=== PATIENT | female | born 1975 | race Hispanic/Latino ===

== ENCOUNTER 2017-01-11 17:57 | Emergency (ER) | payer MEDICAID ==
[2017-01-11 18:16] VITALS: BP 111/60; PULSE 60; RESP 18; TEMP 98.2; O2SAT 100
--- NOTE | 2017-01-11 18:44 | C.PDOC ---
History Of Present Illness 41 yr old female presents to the ER with complaints of left shoulder pain today. Patient states she was moving furniture around the house today. Reports taking Advil with mild relief. Denies chest pain, SOB, neck pain, back pain, weakness or numbness. Time Seen by Provider: 01/11/17 18:39 Chief Complaint (Nursing): Upper Extremity Problem/Injury History Per: Patient History/Exam Limitations: no limitations Onset/Duration Of Symptoms: Sudden Onset (Since morning) Past Medical History Reviewed: Historical Data, Nursing Documentation, Vital Signs Vital Signs: Last Vital Signs Temp 98.2 F 01/11/17 18:12 Pulse 60 01/11/17 18:12 Resp 18 01/11/17 18:12 BP 111/60 01/11/17 18:12 Pulse Ox 100 01/11/17 20:09 - Medical History PMH: Asthma Family History: States: No Known Family Hx - Social History Hx Tobacco Use: No Hx Alcohol Use: Yes Hx Substance Use: No - Immunization History Hx Tetanus Toxoid Vaccination: No Hx Influenza Vaccination: No Hx Pneumococcal Vaccination: No Review Of Systems Except As Marked, All Systems Reviewed And Found Negative. Cardiovascular: Negative for: Chest Pain Respiratory: Negative for: Shortness of Breath Musculoskeletal: Positive for: Shoulder Pain (Left shoulder). Negative for: Neck Pain, Back Pain Neurological: Negative for: Weakness, Numbness Physical Exam - Physical Exam Appears: Non-toxic, No Acute Distress Skin: Warm, Dry, No Rash Head: Atraumatic, Normacephalic Eye(s): bilateral: Normal Inspection Oral Mucosa: Moist Neck: Normal ROM Chest: Symmetrical, No Tenderness Cardiovascular: Rhythm Regular, No Murmur Respiratory: Normal Breath Sounds, No Rales, No Rhonchi, No Stridor, No Wheezing Extremity: Capillary Refill (<2 sec), Other (Left Shoulder: Mild tenderness to the lateral and anterior aspect. Pain with abduction. No deformity. No swelling. ) Neurological/Psych: Oriented x3, Normal Speech Gait: Steady ED Course And Treatment O2 Sat by Pulse Oximetry: 100 (RA) Pulse Ox Interpretation: Normal Medical Decision Making Medical Decision Making: Impression: arm injury likely muscle strain. based on history and exam xray is not indicated Plan: * Flexeril PO Progress: Arm sling applied. On re-examination, patient is resting comfortably in no acute distress. Patient reports improvement of symptoms. Patient feels comfortable going home and will be discharged. Patient given follow up instructions. Disposition Counseled Patient/Family Regarding: Diagnosis, Need For Followup, Rx Given - Disposition Referrals: Luis Fernando Parker MD [Staff Provider] - Disposition: HOME/ ROUTINE Disposition Time: 19:07 Condition: STABLE Additional Instructions: Please apply ice to area 15 minutes three times a day. Take Motrin as needed for pain every 6 hours, with food to not upset stomach. Follow up with orthopedic if pain persists over one week. Prescriptions: Cyclobenzaprine [Cyclobenzaprine HCl] 10 mg PO TID #21 tab Ibuprofen [Motrin] 600 mg PO Q8 #30 tab Instructions: Shoulder Sprain (ED) Forms: [employer] (Malian) - POA Present On Arrival: None - Clinical Impression Clinical Impression: Sprain of shoulder, left - PA / BOTTLE SELECTOR / Resident Statement MD/DO has reviewed & agrees with the documentation as recorded. - Scribe Statement The provider has reviewed the documentation as recorded by the Scribjulee Daley All medical record entries made by the Scribe were at my direction and personally dictated by me. I have reviewed the chart and agree that the record accurately reflects my personal performance of the history, physical exam, medical decision making, and the department course for this patient. I have also personally directed, reviewed, and agree with the discharge instructions and disposition.
== END 2017-01-11 19:18 | disposition home or self-care (01) ==
LOC: C.ER 17:57
DX: S43.402A Unspecified sprain of left shoulder joint, initial encounter (principal); X50.9XXA Other and unspecified overexertion or strenuous movements or postures, initial encounter; Y92.009 Unspecified place in unspecified non-institutional (private) residence as the place of occurrence of the external cause

== ENCOUNTER 2017-05-13 11:32 | Emergency (ER) | payer MEDICAID ==
[2017-05-13 11:57] VITALS: TEMP 98.3
[2017-05-13] MEDS ORDERED: Naproxen 550 mg Tab PO STA (12:31)
[2017-05-13] MEDS ORDERED: Naproxen 550 mg Tab PO ONE (12:35)
--- NOTE | 2017-05-13 12:59 | RAD ---
PROCEDURE: Left Knee Radiographs. HISTORY: Posttraumatic pain COMPARISON: None. FINDINGS: BONES: Normal. No fracture. JOINTS: Normal. No osteoarthritis. JOINT EFFUSION: None. OTHER FINDINGS: None. IMPRESSION: Normal radiographs of the left knee.
--- NOTE | 2017-05-13 12:59 | RAD ---
PROCEDURE: Left Ankle Radiographs. HISTORY: trauma COMPARISON: None FINDINGS: BONES: Normal. No fracture. JOINTS: Normal. No osteoarthritis. Ankle mortise maintained. Talar dome intact SOFT TISSUES: Normal. OTHER FINDINGS: None. IMPRESSION: Normal left ankle radiographs.
--- NOTE | 2017-05-13 13:06 | C.PDOC ---
History Of Present Illness 41-year-old female, presents to the emergency department with complaints of left leg pain s/p slip and fall yesterday on stairs. Patient is complaining of knee and ankle pain that worsens with ambulation. She has a Hx of torn ligaments in knee. Denies numbness/weakness. No head injury, LOC, or n/v. Time Seen by Provider: 05/13/17 12:13 Chief Complaint (Nursing): Hip Pain History Per: Patient History/Exam Limitations: no limitations Current Symptoms Are (Timing): Still Present Past Medical History Reviewed: Historical Data, Nursing Documentation, Vital Signs Vital Signs: Last Vital Signs Temp 98.3 F 05/13/17 11:39 Pulse 78 05/13/17 13:15 Resp 16 05/13/17 13:15 BP 120/85 05/13/17 13:15 Pulse Ox 99 05/13/17 13:31 - Medical History PMH: Asthma Family History: States: No Known Family Hx - Social History Hx Tobacco Use: No Hx Alcohol Use: Yes Hx Substance Use: No - Immunization History Hx Tetanus Toxoid Vaccination: No Hx Influenza Vaccination: No Hx Pneumococcal Vaccination: No Review Of Systems Constitutional: Negative for: Fever Musculoskeletal: Positive for: Leg Pain (left) Neurological: Negative for: Weakness, Numbness Physical Exam - Physical Exam Appears: Non-toxic, No Acute Distress Skin: Warm, Dry, No Rash Head: Atraumatic, Normacephalic Eye(s): bilateral: Normal Inspection, EOMI Nose: Normal Oral Mucosa: Moist Lips: Normal Appearing Neck: Normal ROM Chest: Symmetrical Respiratory: No Accessory Muscle Use Extremity: Normal ROM, No Calf Tenderness, Capillary Refill (<2 sec), No Swelling, Other (Diffuse tenderness to knee and ankle.) Pulses: Left Dorsalis Pedis: Normal, Right Dorsalis Pedis: Normal Neurological/Psych: Oriented x3, Normal Speech, Normal Motor, Normal Sensation Gait: Steady ED Course And Treatment O2 Sat by Pulse Oximetry: 99 (on RA) Pulse Ox Interpretation: Normal - Other Rad ankle xr X-Ray: Viewed By Me, Read By Radiologist Interpretation: PROCEDURE: Left Ankle Radiographs. HISTORY: trauma. COMPARISON: None. FINDINGS: BONES: Normal. No fracture. JOINTS: Normal. No osteoarthritis. Ankle mortise maintained. Talar dome intact. SOFT TISSUES: Normal. OTHER FINDINGS: None. IMPRESSION: Normal left ankle radiographs. knee xr X-Ray: Viewed By Me, Read By Radiologist Interpretation: PROCEDURE: Left Knee Radiographs. HISTORY: Posttraumatic pain. COMPARISON: None. FINDINGS: BONES: Normal. No fracture. JOINTS: Normal. No osteoarthritis. JOINT EFFUSION: None. OTHER FINDINGS: None. IMPRESSION: Normal radiographs of the left knee. Progress Note: XR L Knee and ankle ordered and reviewed. Patient treated with PO Naproxen. anahi wrap applied to ankle and knee brace applied to knee by cashier payments received. Patient was instructed to follow up with physician/clinic in 1-2 days for further evaluation. Disposition - Disposition Disposition: HOME/ ROUTINE Disposition Time: 13:04 Condition: STABLE Additional Instructions: Follow up with your primary medical doctor or clinic in 2-5 days for further evaluation. Take medications as prescribed. Return to the emergency department at any time if symptoms persist or worsen. Prescriptions: Naproxen [Naprosyn] 1 tab PO BID PRN #20 tab PRN Reason: Pain Instructions: Contusion in Adults (ED) Forms: [employer] (Somali) - Clinical Impression Clinical Impression: Knee strain, Ankle sprain - Scribe Statement The provider has reviewed the documentation as recorded by the Scribe (Crys Parker) All medical record entries made by the Scribe were at my direction and personally dictated by me. I have reviewed the chart and agree that the record accurately reflects my personal performance of the history, physical exam, medical decision making, and the department course for this patient. I have also personally directed, reviewed, and agree with the discharge instructions and disposition.
[2017-05-13 13:16] VITALS: BP 120/85; PULSE 78; RESP 16
[2017-05-13 13:26] VITALS: O2SAT 99
== END 2017-05-13 13:14 | disposition home or self-care (01) ==
LOC: C.ER 11:32
DX: S86.912A Strain of unspecified muscle(s) and tendon(s) at lower leg level, left leg, initial encounter (principal); S93.402A Sprain of unspecified ligament of left ankle, initial encounter; W01.0XXA Fall on same level from slipping, tripping and stumbling without subsequent striking against object, initial encounter

== ENCOUNTER 2017-08-14 17:15 | Emergency (ER) | payer MEDICAID ==
[2017-08-14 17:21] VITALS: BP 112/73; PULSE 83; RESP 18; TEMP 97.9; O2SAT 97
--- NOTE | 2017-08-14 19:47 | C.PDOC ---
History Of Present Illness 41 year old female presents to the ED c/o left knee pain after falling yesterday. Patient reports she slipped on wet ground which caused her to twist her knee. Patient reports this happened before with her same knee. Patient denies LOC, headache, weakness, numbness. Time Seen by Provider: 08/14/17 18:53 Chief Complaint (Nursing): Lower Extremity Problem/Injury History Per: Patient History/Exam Limitations: no limitations Onset/Duration Of Symptoms: Days Current Symptoms Are (Timing): Gone Recent travel outside of the [place]: No Additional History Per: Patient - Knee Description Of Injury: Twisted Currently Unable To: Bend Or Move Past Medical History Reviewed: Historical Data, Nursing Documentation, Vital Signs Vital Signs: Last Vital Signs Temp 97.9 F 08/14/17 17:19 Pulse 83 08/14/17 17:19 Resp 18 08/14/17 17:19 BP 112/73 08/14/17 17:19 Pulse Ox 97 08/14/17 19:47 - Medical History PMH: Asthma Surgical History: No Surg Hx Family History: States: Unknown Family Hx - Social History Hx Tobacco Use: No Hx Alcohol Use: Yes Hx Substance Use: No - Immunization History Hx Tetanus Toxoid Vaccination: No Hx Influenza Vaccination: No Hx Pneumococcal Vaccination: No Review Of Systems Constitutional: Negative for: Fever, Chills Cardiovascular: Negative for: Chest Pain Respiratory: Negative for: Shortness of Breath Gastrointestinal: Negative for: Abdominal Pain Musculoskeletal: Positive for: Leg Pain Skin: Negative for: Rash Physical Exam - Physical Exam Appears: Non-toxic, No Acute Distress Skin: Normal Color, Warm, Dry Head: Atraumatic, Normacephalic Eye(s): bilateral: Normal Inspection Extremity: Normal ROM, Tenderness (mild left knee), Capillary Refill (< 2 seconds), No Swelling, Other (suprapatellar effusion ) Pulses: Left Dorsalis Pedis: Normal, Right Dorsalis Pedis: Normal Neurological/Psych: Oriented x3, Normal Motor, Normal Sensation Gait: Steady ED Course And Treatment O2 Sat by Pulse Oximetry: 97 (ON RA) Pulse Ox Interpretation: Normal - Other Rad Left Knee X-Ray X-Ray: Interpreted by Me, Viewed By Me Interpretation: No fracture or dislocation Medical Decision Making Medical Decision Making: Impression: left knee pain Plan: * Left Knee X-Ray * Motrin 600 mg PO Patient had a knee immobilizer placed on her left knee and was given information for her to follow up with ortho. Patient refused crutches Disposition - Disposition Referrals: Shahida Cartwright MD [Staff Provider] - Disposition: HOME/ ROUTINE Disposition Time: 19:45 Condition: STABLE Additional Instructions: Follow up with PMD and Orthopedist within 1-2 days. Return to ED if feel worse. Prescriptions: Ibuprofen [Motrin Tab] 600 mg PO Q8 #30 tab Instructions: Knee Immobilizer (DC), Knee Sprain (DC) Forms: [employer] (Syriac) - Clinical Impression Clinical Impression: Contusion of knee, left - PA / BONSAI TENDER / Resident Statement MD/DO has reviewed & agrees with the documentation as recorded. - Scribe Statement The provider has reviewed the documentation as recorded by the Scribe Angel Beltre All medical record entries made by the Scribe were at my direction and personally dictated by me. I have reviewed the chart and agree that the record accurately reflects my personal performance of the history, physical exam, medical decision making, and the department course for this patient. I have also personally directed, reviewed, and agree with the discharge instructions and disposition.
--- NOTE | 2017-08-15 08:04 | RAD ---
PROCEDURE: Left Knee Radiographs. HISTORY: Pain. COMPARISON: Left knee x-rays 05/13/2017 FINDINGS: BONES: No fracture identified. JOINTS: No dislocation seen. Bony articulations appear maintained. JOINT EFFUSION: None. OTHER FINDINGS: None. IMPRESSION: No fracture or dislocation identified.
== END 2017-08-14 20:11 | disposition home or self-care (01) ==
LOC: C.ER 17:15
DX: S80.02XA Contusion of left knee, initial encounter (principal); W01.0XXA Fall on same level from slipping, tripping and stumbling without subsequent striking against object, initial encounter; Y92.9 Unspecified place or not applicable

== ENCOUNTER 2018-05-29 15:06 | Emergency (ER) | payer MEDICAID ==
[2018-05-29 15:50] VITALS: RESP 20
[2018-05-29] MEDS ORDERED: Albuterol-Ipratrop 3 mg / 0.5 (3 ml) UD INH STA ×3 (16:00→17:39)
--- NOTE | 2018-05-29 16:12 | C.PDOC ---
History Of Present Illness 42 y/o female,w/PMhx of asthma, presents to the ER complaining of shortness of breath which has been present for the past 2 days. Patient states that she used inhaler without relief. Patient denies having fever, chills, cough, CP, tobacco use, and hx of intubations. Time Seen by Provider: 05/29/18 15:35 Chief Complaint (Nursing): Shortness Of Breath History Per: Patient History/Exam Limitations: no limitations Onset/Duration Of Symptoms: Days Current Symptoms Are (Timing): Still Present Severity: Moderate Past Medical History Reviewed: Historical Data, Nursing Documentation, Vital Signs Vital Signs: Last Vital Signs Temp 99.2 F 05/29/18 15:15 Pulse 94 H 05/29/18 15:37 Resp 20 05/29/18 15:45 BP 113/69 05/29/18 15:37 Pulse Ox 98 05/29/18 15:45 - Medical History PMH: Asthma Surgical History: No Surg Hx Family History: States: No Known Family Hx - Social History Hx Tobacco Use: No Hx Alcohol Use: No Hx Substance Use: No - Immunization History Hx Tetanus Toxoid Vaccination: No Hx Influenza Vaccination: No Hx Pneumococcal Vaccination: No Review Of Systems Except As Marked, All Systems Reviewed And Found Negative. Constitutional: Negative for: Fever, Chills Cardiovascular: Negative for: Chest Pain Respiratory: Positive for: Shortness of Breath. Negative for: Cough Gastrointestinal: Negative for: Nausea, Vomiting Physical Exam - Physical Exam Appears: Non-toxic, No Acute Distress Skin: Normal Color, Warm, Dry Head: Atraumatic, Normacephalic Eye(s): bilateral: Normal Inspection Nose: Normal Oral Mucosa: Moist Neck: Supple Chest: Symmetrical Cardiovascular: Rhythm Regular Respiratory: No Rales, No Rhonchi, Wheezing (expiratory wheezing) Gastrointestinal/Abdominal: Normal Exam, Soft, No Tenderness, No Guarding, No Rebound Neurological/Psych: Oriented x3, Normal Speech ED Course And Treatment O2 Sat by Pulse Oximetry: 98 (RA) Pulse Ox Interpretation: Normal Medical Decision Making Medical Decision Making: Assessment: Asthma Exacerbation Plan: --CXR --Albuterol --Prednisone PO patient states improvement. Will discharge home to follow up with pmd within 2 days Disposition - Disposition Referrals: Washington Gomez MD [Medical Doctor] - Disposition: HOME/ ROUTINE Disposition Time: 18:43 Condition: STABLE Additional Instructions: follow up with your doctor within 2 days call to make an appointment take medications as prescribed return to ER if symptoms worsens or progress Prescriptions: Albuterol HFA [Ventolin HFA 90 mcg/actuation (8 g)] 2 puff IH [id number] #1 puff predniSONE [predniSONE Tab] 50 mg PO DAILY #4 tab Instructions: Asthma in Adults Forms: [facility] (Trinidadian), General Discharge Instructions - Clinical Impression Clinical Impression: Asthma - Scribe Statement The provider has reviewed the documentation as recorded by the Victorino Jolly Provider Attestation: All medical record entries made by the Eliseoibjulee were at my direction and personally dictated by me. I have reviewed the chart and agree that the record accurately reflects my personal performance of the history, physical exam, medical decision making, and the department course for this patient. I have also personally directed, reviewed, and agree with the discharge instructions and disposition.
[2018-05-29] MEDS ORDERED: Albuterol-Ipratrop 3 mg / 0.5 (3 ml) UD ONE ×3 (16:13→18:00)
--- NOTE | 2018-05-29 16:30 | RAD ---
HISTORY: cough COMPARISON: None available. TECHNIQUE: Chest PA and lateral FINDINGS: LUNGS: Biapical pleural thickening. No focal consolidation. Please note that chest x-ray has limited sensitivity for the detection of pulmonary masses. PLEURA: No significant pleural effusion identified. No definite pneumothorax . CARDIOVASCULAR: Heart size appears within normal limits. Faint atherosclerotic calcification present. OSSEOUS STRUCTURES: Scoliosis convex the right. VISUALIZED UPPER ABDOMEN: Unremarkable. OTHER FINDINGS: None. IMPRESSION: Biapical pleural thickening. No focal consolidation.
[2018-05-29 18:23] VITALS: BP 108/62; PULSE 118; TEMP 99.3
[2018-05-29 18:45] VITALS: O2SAT 98
== END 2018-05-29 19:04 | disposition home or self-care (01) ==
LOC: C.ER 15:06
DX: J45.909 Unspecified asthma, uncomplicated (principal)

== ENCOUNTER 2018-09-09 16:27 | Emergency (ER) | payer MEDICAID ==
[2018-09-09 17:28] VITALS: O2SAT 99
--- NOTE | 2018-09-09 17:53 | C.PDOC ---
History Of Present Illness Patient is a 42yo female who presents to the ED with complaint of left ankle pain that began 1 week ago. Patient states she was bowling with her son when her symptoms started but she denies any known injury. Pain is mild, aching and nonradiating. Pain is worsened with movement and relieved with rest. She has been taking motrin, icing and elevating the leg without relief. No fevers or chills, no rash or wounds. NO other complaints at this time. Time Seen by Provider: 09/09/18 17:48 Chief Complaint (Nursing): Lower Extremity Problem/Injury Past Medical History Reviewed: Historical Data, Nursing Documentation, Vital Signs Vital Signs: Last Vital Signs Temp 98.8 F 09/09/18 17:22 Pulse 60 09/09/18 17:22 Resp 20 09/09/18 17:22 BP 123/77 09/09/18 17:22 Pulse Ox 99 09/09/18 17:22 Primary Care Provider: Washington Gomez - Medical History PMH: Asthma Family History: States: Unknown Family Hx - Social History Hx Tobacco Use: No Hx Alcohol Use: Yes Hx Substance Use: No - Immunization History Hx Tetanus Toxoid Vaccination: No Hx Influenza Vaccination: No Hx Pneumococcal Vaccination: No Review Of Systems Except As Marked, All Systems Reviewed And Found Negative. Physical Exam - Physical Exam Appears: Well, Non-toxic, No Acute Distress Skin: Normal Color Head: Atraumatic Eye(s): bilateral: Normal Inspection Nose: Normal Respiratory: Other (Regular and unlabored.) Extremity: Other (LLE: Distal neurovascular function intact. Good pulses to the LLE. No erythema, warmth or ecchymosis. No tenderness to the left knee or foot. Mild tenderness to the left lateral ankle with swelling. Acchiles intact. FROM of ankle with pain. No calf tenderness. Negative anton's sign.) Neurological/Psych: Oriented x3, Normal Speech ED Course And Treatment O2 Sat by Pulse Oximetry: 99 - Other Rad XRAY ANKLE LEFT X-Ray: Interpreted by Me Interpretation: No fracture or dislocation. Medical Decision Making Medical Decision Makin 09/09/18 Xray of the left ankle ordered. 190309/09/18 Xrays reviewed which shows no fracture or dislocation. Will treat for sprain with anahi wrap and air cast. Patient updated on results. Will treat with NSAID and immobilization. Refuses crutches. Disposition Counseled Patient/Family Regarding: Studies Performed, Diagnosis - Disposition Referrals: Luis Fernando Parker MD [Staff Provider] - Disposition: HOME/ ROUTINE Disposition Time: 19:13 Condition: GOOD Additional Instructions: Follow-up with PMD and orthopedist. Wear air cast and air wrap. Ice and elevate your leg. Limit walking and movement. Return if symptoms worsen or persist. Prescriptions: Ibuprofen [Motrin Tab] 800 mg PO TID #20 tab Instructions: Ankle Sprain Forms: [facility] (Polish), General Discharge Instructions Print Language: NEPALI - Clinical Impression Clinical Impression: Ankle pain
[2018-09-09 19:06] VITALS: BP 120/62; PULSE 68; RESP 18; TEMP 97.8
--- NOTE | 2018-09-10 08:57 | RAD ---
Date of service: 09/09/2018 PROCEDURE: Left Ankle Radiographs. HISTORY: ankle pain l COMPARISON: None available. TECHNIQUE: 3 views obtained. FINDINGS: BONES: Benign-appearing sclerotic focus compatible with bone island distal tibial epiphysis and posterior superior calcaneus. No fracture. JOINTS: Normal. No osteoarthritis. Ankle mortise maintained. Talar dome intact SOFT TISSUES: Normal. OTHER FINDINGS: Mariam's tendon insertional enesthesophyte. IMPRESSION: No fracture lytic lesion. Ankle mortise intact. Incidental other findings as detailed above.
== END 2018-09-09 19:38 | disposition home or self-care (01) ==
LOC: C.ER 16:27
DX: M25.572 Pain in left ankle and joints of left foot (principal)